=== PATIENT | female | born 1960 | race Caucasian/White ===

== ENCOUNTER 2016-03-11 08:47 | Emergency (ER) | payer MEDICAID ==
[~2016-03-11] VITALS: Ht 149.9 cm; Wt 38.6 kg
[~2016-03-11 08:47] MED LIST: ASPIRIN EC81 MG ORAL; DIGOXIN125 MCG ORAL; FUROSEMIDE20 M1 ORAL; LISINOPRIL5 MG ORAL; SPIRONOLACTONE100 MG ORAL; TENORMIN25 MG ORAL
[2016-03-11] MEDS ORDERED: FUROSEMIDE20 M1 ORAL (08:50)
[2016-03-11] MEDS ORDERED: SPIRONOLACTONE100 MG ORAL (08:50)
[2016-03-11 08:53] VITALS: BP 127/64
--- NOTE | 2016-03-11 09:28 | Emergency Room Report ---
History of Present Illness General Chief Complaint: Constipation Source: Patient, EMS Present Illness HPI Patient reports that she was recently at [facility] in with nausea And some mild dizziness She had blood work and was there for over 8 hours states that everything went well and she was discharged home However she continues with her constipation She is departmentally handicapped and is unable to give herself enemas She has been constipated And attempted an enema at home but feels that she may the medicine was not appropriately able to administer it Was on the restroom and called paramedics Denies any chest pain or shortness of breath denies any back or flank pain denies any vomiting Allergies: Coded Allergies: No Known Allergies (Unverified , 04/03/15) Patient History Past Medical History: see triage record Pertinent Family History: none Reviewed Nursing Documentation: PMH: Agreed, PSxH: Agreed Nursing Documentation-PMH Past Medical History: No History, Except For Hx Hypertension: Yes Hx Pacemaker: Yes Review of Systems All Other Systems: negative except mentioned in HPI Physical Exam Vital Signs Date Time Temp Pulse Resp B/P Pulse Ox O2 Delivery O2 Flow Rate FiO2 03/11/16 08:39 98.1 98 16 119/80 99 Room Air Sp02 EP Interpretation: reviewed, normal General Appearance: well appearing, no apparent distress Head: normocephalic, atraumatic Eyes: bilateral eye EOMI, bilateral eye PERRL ENT: hearing grossly normal, normal pharynx, TMs + canals normal, uvula midline Neck: full range of motion, supple, no meningismus, no bony tend Respiratory: lungs clear, normal breath sounds, no rhonchi, no respiratory distress, no retraction, no accessory muscle use Cardiovascular #1: normal peripheral pulses, regular rate, rhythm, no edema, no gallop, no JVD, no murmur, other - Pacemaker in place Gastrointestinal: normal bowel sounds, non tender, soft, no mass, no organomegaly, non-distended, no guarding, no hernia, no pulsatile mass, no rebound Genitourinary: no CVA tenderness Musculoskeletal: other - 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 she does not wish to repeat those at this time CT scan was done without contrast there is no evidence of obstruction patient was given oral stool softener along with Fleet enema Had complete resolution of her discomfort at this time requesting to go home A van service was being established for the patient and was do to arrival at 12: 30 However the patient was upset that she had to wait and stated that she was going to the bus CT/MRI/US Diagnostic Results CT/MRI/US Diagnostic Results : Impression CT abdomen pelvisImpression: Normal appendix Moderate stool Suggestion of uterine fibroids Pacemaker Limited evaluation given the absence of contrast is. Mild degenerative changes of both hips Last Vital Signs Date Time Temp Pulse Resp B/P Pulse Ox O2 Delivery O2 Flow Rate FiO2 03/11/16 08:53 98.1 83 16 127/64 99 Room Air Status: improved Disposition: HOME, SELF-CARE Condition: Improved Scripts Na Phos,M-B/Na Phos,Di-Ba* (FLEET ENEMA*) 133 Ml Enema 133 ML RECTAL DAILY for 5 Days, #118 ML 0 Refills Prov: DANITA CLEMENTS D.O. 03/11/16 Docusate Sodium* (COLACE*) 100 Mg Capsule 100 MG ORAL THREE TIMES A DAY for 7 Days, #30 CAP Prov: DANITA CLEMENTS D.O. 03/11/16 Referrals: [facility],REFERRING (PCP) Additional Instructions: Patient is provided with the discharge instructions notified to follow up with primary doctor in the next 2-3 days otherwise return to the er with any worsening symptoms. DANITA CLEMENTS D.O. Mar 11, 2016 09:28
[2016-03-11] MEDS ORDERED: Magnesium Citrate Liq Btl ORAL ONE (09:30)
[2016-03-11] MEDS ORDERED: Fleet's Enema 133ml RECTAL ONE (09:30)
--- NOTE | 2016-03-11 10:26 | Diagnostic Imaging Report ---
Indication: Abdominal pain Technique: Continuous helical transaxial imaging of the abdomen and pelvis was obtained from the lung bases to the pubic symphysis. No intravenous contrast was administered. Coronal 2-D reformats were also obtained. Total Dose length Product (DLP): [address] Dose Index Volume (CTDIvol): 10 mGy Comparison: none Findings: Cardiomegaly noted. Pacemaker is noted. Lung bases are essentially clear. Evaluation of solid organs is limited without IV contrast material. There is no nephrolithiasis identified. Gallbladder is grossly unremarkable. There is a moderate amount of fecal retention within the colon. The appendix is identified and appears normal. The uterus is heterogeneous and enlarged likely on the basis of underlying fibroids. No free fluid or free air identified. There are marginal spurs involving both hip joints as well as mild subchondral cyst formation sclerosis. Impression: Normal appendix Moderate stool Suggestion of uterine fibroids Pacemaker Limited evaluation given the absence of contrast is. Mild degenerative changes of both hips. The CT scanner at [facility] is accredited by the [employer] and the scans are performed using protocols designed to limit radiation exposure to as low as reasonably achievable to attain images of sufficient resolution adequate for diagnostic evaluation.
[2016-03-11 10:32] VITALS: BP 127/64
[2016-03-11] MEDS ORDERED: COLACE100 MG ORAL (11:12)
[2016-03-11] MEDS ORDERED: FLEET ENEMA133 ML RECTAL (11:12)
[2016-03-11 11:30] VITALS: BP 127/64
== END 2016-03-11 11:30 | disposition home or self-care (01) ==
LOC: EDBD 08:47 → EMR 09:23
DX: R10.9 Unspecified abdominal pain (principal); K59.00 Constipation, unspecified; I10 Essential (primary) hypertension; Z95.0 Presence of cardiac pacemaker; I51.7 Cardiomegaly
CPT/HCPCS: 74176; 99284